=== PATIENT | female | born 1945 | race Caucasian/White ===

== ENCOUNTER → 2017-02-22 | Day surgery (SDC) | payer MEDICARE, BC ==
[2017-02-22] VITALS (10 sets, daily range): BP systolic 126–143; BP diastolic 72–93
[~2017-02-22] VITALS: Ht 157.5 cm; Wt 70.3 kg
[~2017-02-22] MED LIST: Acetaminophen (Non formulary) 100 ML IV SCH; Atropine Inj 1mg/10ml Syr IV PRN; Bacitracin 50000 Units Vial ONE; Bacitracin Oint 15gm Tube TOPIC ONE; CEPHALEXIN500 M1 ORAL; Dexamethasone 4mg/ml vial ONE; DiphenhydrAMINE 50mg/ml Inj IVP PRN; Glycopyrrolate 0.2mg/ml 1ml Vial ONE; Hydromorphone 0.5mg/0.5ml inj IVP PRN; Ketorolac 30mg Inj IV PRN; Ketorolac 60mg Inj IV PRN; LORazepam Inj 2mg/ml 1ml IV PRN; LR 1000ml 1,000 ML IVLG SCH; LR 1000ml ONE; Lidocaine 1% 10mg/ml/Epi 0.005mg/ml 30ml vial INJ ONE; Lidocaine 1% MPF 10mg/ml 5ml ONE; Lidocaine 1% Plain 30 ml INJ ONE; Lidocaine 2% MPF 5ml Vial INJ ONE; Meperidine 25mg/0.5ml Inj (FOR RIGORS ONLY) IV PRN; Metoclopramide 10mg/2ml Inj IVP PRN; Midazolam 2mg/2ml Inj IVP PRN; Midazolam 2mg/2ml Inj ONE; NS Irrig 1000ml IRRIG ONE; Neostigmine 1mg/ml 10ml Inj ONE; Norco 5mg/325mg tab ORAL PRN; Norco 7.5mg/325mg tab ORAL PRN; Propofol 10mg/ml 20ml IV ONE; Sterile Water Irrig 1000ml IRRIG ONE; Tylenol #3 tab (300mg/30mg) ORAL PRN; Zemuron 50mg/5ml Inj IV ONE; fentaNYL 100 mcg/2 mL IV ONE; fentaNYL 100 mcg/2 mL IV PRN; oxyCODONE HCL/Acetaminophen 5/325mg ORAL PRN
--- NOTE | 2017-02-22 13:27 | Pre-Procedure Note/Attestation ---
Pre-Procedure Note/Attestation Complete Prior to Procedure Planned Procedure: bilateral Attestation I attest that I discussed the nature of the procedure; its benefits; risks and complications; and alternatives (and the risks and benefits of such alternatives ), prior to the procedure, with the patient (or the patient's legal sales and service representative). I attest that, if there was a reasonable possibility of needing a blood transfusion, the patient (or the patient's legal sales and service representative) was given the [facility] standardized written summary, pursuant to the [place] Blood Safety Act ([place] Health and Safety Code # 1645, as amended). I attest that I re-evaluated the patient just prior to the surgery and that there has been no change in the patient's H&P, except as documented below: Eugenio Woo MD Feb 22, 2017 13:27
--- NOTE | 2017-02-22 13:37 | Anethesia Preoperative Eval ---
Anesthesia Pre-op PMH/ROS General Date of Evaluation: Feb 22, 2017 Time of Evaluation: 13:41 Anesthesiologist: Jacques ASA Score: ASA 2 Mallampati Score Class I : Soft palate, uvula, fauces, pillars visible Class II: Soft palate, uvula, fauces visible Class III: Soft palate, base of uvula visible Class IV: Only hard plate visible Mallampati Classification: Class II Surgeon: Chilo Diagnosis: Breast Capsulation Surgical Procedure: Capsulectomy, Removal and Replace Breast implants Anesthesia History: none Family History: no anesthesia problems Allergies: Coded Allergies: ASPIRIN (Verified Allergy, Unknown, 02/21/17) CANNOT REMEMBER REACTION SULFA (SULFONAMIDE ANTIBIOTICS) (Verified Allergy, Unknown, 02/21/17) CANNOT REMEMBER Uncoded Allergies: PERFUMES (Allergy, Severe, 02/21/17) FEEL FAINT ANESTHESIA MED (Allergy, Unknown, 02/21/17) NAUSEA Medications: see eMAR Past Medical History Cardiovascular: Reports: HTN Pulmonary: Reports: asthma PSxH Narrative: Breast Implants Anesthesia Pre-op Phys. Exam Physician Exam Last Vital Signs Date Time Temp Pulse Resp B/P (MAP) Pulse Ox O2 Delivery O2 Flow Rate FiO2 02/22/17 11:52 98.4 85 19 140/93 98 Room Air Constitutional: NAD Neurologic: CN 2-12 intact Cardiovascular: RRR Respiratory: CTA Gastrointestinal: S/NT/ND Airway Exam Mallampati Score: Class II MO: full ROM: limited Teeth: intact Anesthesia Pre-op A/P Risk Assessment & Plan Assessment: ASA 2 Plan: GA, BIS, Glidescope Status Change Before Surgery: No Pre-Antibiotics Dru Gram Ancef IV Given Within 1 Hr of Incision: Yes Time Given: 14:01 Carlo Hanna MD Feb 22, 2017 13:36
--- NOTE | 2017-02-22 13:41 | Immediate Post-Op Evaluation ---
Immediate Post-Op Evalulation Immediate Post-Op Evalulation Procedure: Capsulectomy, Removal and Replace Breast implants Date of Evaluation: Feb 22, 2017 Time of Evaluation: 17:00 IV Fluids: 900 LR Blood Products: 0 Estimated Blood Loss: 20 Urinary Output: 0 Blood Pressure Systolic: 133 Blood Pressure Diastolic: 82 Pulse Rate: 84 Respiratory Rate: 16 O2 Sat by Pulse Oximetry: 100 Temperature (Fahrenheit): 98 Pain Score (1-10): 3 Nausea: No Vomiting: No Complications 0 Patient Status: awake, reacts, patent, extubated, none Hydration Status: adequate Dru Gram Ancef IV Given Within 1 Hr of Incision: Yes Time Given: 14:01 Carlo Hanna MD Feb 22, 2017 13:41
--- NOTE | 2017-02-22 16:42 | 48 Hour Post Anesthesia Eval ---
Post Anesthesia Evaluation Procedure: Capsulectomy, Removal and Replace Breast implants Date of Evaluation: Feb 22, 2017 Time of Evaluation: 19:00 Blood Pressure Systolic: 128 0: 78 Pulse Rate: 82 Respiratory Rate: 18 Temperature (Fahrenheit): 98.4 O2 Sat by Pulse Oximetry: 99 Airway: patent Nausea: No Vomiting: No Pain Intensity: 3 Hydration Status: adequate Cardiopulmonary Status: Stable Mental Status/LOC: patient returned to baseline Follow-up Care/Observations: 0 Post-Anesthesia Complications: 0 Follow-up care needed: ready to discharge Carlo Hanna MD Feb 22, 2017 16:42
--- NOTE | 2017-02-28 00:45 | Operative Note - Dictated ---
DATE OF OPERATION: 02/27/2017 PREOPERATIVE DIAGNOSES: Bilateral encapsulation of breast with pain. The patient also had ptosis and wanted to have a lift of the breast using a circular incision around the areola and a vertical incision underneath the nipple-areolar complex. Procedure: The patient wants to have the implants removed as a result of pain from the scar tissue. The patient was consented with realistic expectations and was brought to surgery, was given D5 half-normal saline and was under general anesthesia, was prepped and draped in usual manner for an open capsulectomy and capsulotomy with replacement of small of breast implants. The patient was injected with 1% Xylocaine 1:200,000 epinephrine with a 25-gauge needle bilaterally in the inframammary portion of the breast. The patient saw many photographs in the breast mastopexy book and breast reduction book and was aware of the risks, complications, and alternative methods of treatment. The incision was placed beneath the areola. A vertical incision and through that vertical incision, we placed double hooks. We used a 15 blade to make the incision. We then used a large Metzenbaum scissors to dissect down to the capsule. We used -'s, Everett's and multiple other retractors to dissect using the scissors and cutting cautery to dissect around the scar tissue of the implant that was on both sides. This took approximately almost two hours to do on both sides, taking the capsules out and taking photographs of the capsules at the same time after the capsules were removed. We then placed new implants into the pocket, which were smaller, I believe they were two 90 cc implants on both sides. The patient was then closed using 3-0 Vicryl and 5-0 blue Prolene in the skin. The Vicryl was interrupted in the dermis. The skin was removed around the areola and lifted up and used the typical vertical mastopexy incision removing the extra skin and then closing it using 3-0 Vicryl sutures interrupted in the dermis and then a 5-0 blue Prolene running continuous in the skin. The patient was then extubated and then transferred to the postop recovery facility in satisfactory condition following the placement of bacitracin, 4x4s and Telfa and iodoform gauze and Kerlix. Minimal bleeding was noted. Scar tissue was photographed. The capsules were photographed. The vertical mastopexy raised in the pleural complex approximately an inch. Eugenio Woo M.D. DR: DAVIDSON JOB#: [id number] CC:
== END | disposition home or self-care (01) ==
LOC: SUR 11:22
DX: T85.44XA Capsular contracture of breast implant, initial encounter (principal); Y92.009 Unspecified place in unspecified non-institutional (private) residence as the place of occurrence of the external cause; Y83.8 Other surgical procedures as the cause of abnormal reaction of the patient, or of later complication, without mention of misadventure at the time of the procedure; E78.00 Pure hypercholesterolemia, unspecified; J45.909 Unspecified asthma, uncomplicated; K64.8 Other hemorrhoids; J44.9 Chronic obstructive pulmonary disease, unspecified; E55.9 Vitamin D deficiency, unspecified; R73.01 Impaired fasting glucose; R09.82 Postnasal drip; H69.80 Other specified disorders of Eustachian tube, unspecified ear; M40.209 Unspecified kyphosis, site unspecified; M54.30 Sciatica, unspecified side; I34.0 Nonrheumatic mitral (valve) insufficiency; I10 Essential (primary) hypertension; Z80.3 Family history of malignant neoplasm of breast; Z87.891 Personal history of nicotine dependence; Z80.41 Family history of malignant neoplasm of ovary; Z82.3 Family history of stroke; Z82.49 Family history of ischemic heart disease and other diseases of the circulatory system; Z81.1 Family history of alcohol abuse and dependence; Z81.8 Family history of other mental and behavioral disorders
CPT/HCPCS: 19340; 19371; J0690; J1100; J2001; J2250; J2405; J2704; J2710; J2765; J3010; J7120; L8600; 94003; 94150